=== PATIENT | male | born 1955 | race Caucasian/White ===

== ENCOUNTER → 2016-12-25 | Outpatient (CLI) | payer BC ==
--- NOTE | 2016-12-25 15:39 | DIAGNOSTIC IMAGING REPORT ---
LEFT ELBOW MIN 3 VIEWS ROUTINE CLINICAL HISTORY: BURSITIS LEFT ELBOW PAIN COMPARISON: None. DISCUSSION: No acute fractures are visualized. There are no dislocations. There is pronounced soft tissue swelling over the olecranon, suggestive of an olecranon bursitis. There is a small corticated density at the level of the coronoid processes the proximal ulna. This is felt to be chronic. IMPRESSION: Suspected olecranon bursitis. No acute fractures. Electronically signed by: Boris Alvarado M.D. 12/25/2016 3:37 PM Dictated Date/Time: 12/25/2016 3:36 PM
--- NOTE | 2016-12-25 15:41 | DIAGNOSTIC IMAGING REPORT ---
RIGHT HAND MIN 3 VIEWS ROUTINE CLINICAL HISTORY: Right hand pain. Arthritis. COMPARISON: None. DISCUSSION: There are no acute fractures. There are osteoarthritic changes most pronounced the level of the interphalangeal joints and first carpometacarpal joint. There is no bony erosive change. IMPRESSION: Osteoarthritic type change. No acute fractures. No evidence of bony erosive disease Electronically signed by: Boris Alvarado M.D. 12/25/2016 3:40 PM Dictated Date/Time: 12/25/2016 3:39 PM
--- NOTE | 2016-12-25 15:44 | DIAGNOSTIC IMAGING REPORT ---
LEFT HAND MIN 3 VIEWS ROUTINE CLINICAL HISTORY: Left hand pain. Arthritis. COMPARISON: None. DISCUSSION: There is a presumed bone island involving the distal phalanx of the third finger. There are mild osteoarthritic type changes most pronounced the level the first carpometacarpal joint. There are small bony erosions involving the base of the middle phalanx of the third finger. There is a lunate erosion. IMPRESSION: 1. Mild osteoarthritic type changes most pronounced the level of the first carpometacarpal joint 2. Small bony erosions involving the base of the middle phalanx of the third finger 3. Lunate erosion. Electronically signed by: Boris Alvarado M.D. 12/25/2016 3:42 PM Dictated Date/Time: 12/25/2016 3:40 PM
[2016-12-25 16:39] LABS: BASO % 0.5 %; BASO ABS # 0.04 K/uL (0-0.2); COMPLETE YES; IG% 0.2 %; LYMPH % 37.6 %; LYMPH ABS # 3.23 K/uL (1.2-3.4); MEAN CELL VOLUME 88.2 fL (80-100); MEAN CORPUSCULAR HEMOGLOBIN 29.6 pg (25-34); MEAN CORPUSCULAR HGB CONC 33.6 g/dl (32-36); MONO % 7.8 %; NEUT % 49.9 %; PLATELET COUNT 268 K/uL (130-400); WHITE BLOOD COUNT 8.58 K/uL (4.8-10.8)
[2016-12-25 17:03] LABS: ALT/SGPT 38 U/L (12-78); CREATININE 0.97 mg/dl (0.60-1.40)
[2016-12-25 17:06] LABS: ALKALINE PHOSPHATASE 72 U/L (45-117); AST/SGOT 21 U/L (15-37)
[2016-12-25 20:32] LABS: SYNOVIAL FLUID APPEARANCE TURBID; SYNOVIAL FLUID COLOR BROWN
[2016-12-25 20:34] LABS: SYNOVIAL FLUID MONONUC RELAT 20.1 %; SYNOVIAL FLUID POLYNUC RELAT 79.9 %
== END | disposition home or self-care (01) ==
LOC: C.RAD1850 15:15
PROVIDERS: ATTEND Internal Medicine Rheumatology
DX: M13.0 Polyarthritis, unspecified (principal); M70.22 Olecranon bursitis, left elbow; R76.8 Other specified abnormal immunological findings in serum; M85.842 Other specified disorders of bone density and structure, left hand

== ENCOUNTER → 2017-01-07 | Outpatient (CLI) | payer BC ==
--- NOTE | 2017-01-07 11:59 | DIAGNOSTIC IMAGING REPORT ---
RIGHT ELBOW 3 VIEWS HISTORY: RIGHT ELBOW PAIN Right COMPARISON: None. FINDINGS: There is no fracture or dislocation. There are 2 focal areas of soft tissue swelling at the posterior elbow. No elbow effusion. No radiopaque foreign bodies. IMPRESSION: No fractures. There are 2 focal areas of soft tissues swelling at the posterior elbow. This may represent areas of bursitis. Electronically signed by: Jay Jay Jorge M.D. 01/07/2017 11:58 AM Dictated Date/Time: 01/07/2017 11:57 AM
== END | disposition home or self-care (01) ==
LOC: C.RDSM 11:15
PROVIDERS: ATTEND Family Medicine
DX: M25.521 Pain in right elbow (principal)